=== PATIENT | male | born 1950 | race Caucasian/White ===

== ENCOUNTER 2018-09-30 10:23 | Emergency (ER) | payer MEDICARE ==
[~2018-09-30] VITALS: Ht 182.9 cm; Wt 90.9 kg
[2018-09-30 11:43] LABS: HEMATOCRIT 38.8 % (39.0-50.0); HEMOGLOBIN 12.4 g/dl (14.0-18.0); IMMATURE GRANULOCYTES 0.5 % (0.0-5.0); MEAN CELL VOLUME 94.6 fL CALC (80.0-100.0); MEAN CORPUSCULAR HGB 30.2 pG CALC (26.0-32.0); NEUT# 7.6 thou/uL (1.82-7.42); RED BLOOD COUNT 4.1 mill/uL (4.70-6.10); RED CELL DISTRI WIDTH 14.1 % (11.5-15.5)
[2018-09-30 11:45] LABS: URINE BLOOD DIPSTICK LARGE (NEGATIVE); URINE COLOR YELLOW; URINE GLUCOSE - DIPSTICK NEGATIVE (NEGATIVE); URINE KETONE 15 mg/dL (NEGATIVE); URINE LEUK ESTERASE NEGATIVE (NEGATIVE); URINE NITRITE - DIPSTICK NEGATIVE (Negative); URINE PROTEIN - DIPSTICK 100 mg/dL (NEG-TRACE)
[2018-09-30 11:48] LABS: URINE BILIRUBIN - DIPSTICK MODERATE (NEGATIVE)
[2018-09-30 12:06] LABS: URINE RBC TNTC RBC/hpf (0-5); URINE SQUAMOUS EPITHELIAL CELL FEW EPI/hpf (0-FEW)
[2018-09-30 12:41] LABS: ALBUMIN 4.2 g/dL (3.2-5.0); ALKALINE PHOSPHATASE 134 u/l (38-126); ANION GAP 19 (6-22 (CALC)); BILIRUBIN, TOTAL 1.1 mg/dL (0.0-1.4); BUN 15 mg/dL (8-23); BUN/CREATININE RATIO 16 (12-20 (CALC)); CARBON DIOXIDE 24 mmol/l (22-30); CHLORIDE 100 mmol/l (95-108); GFR > 60 ML/MIN (>=60 (CALC)); GFR FOR AFR.AMER. > 60 ML/MIN (>=60 (CALC)); POTASSIUM 3.7 mmol/l (3.5-5.1); SGOT/AST 39 u/l (19-48); SODIUM 140 mmol/l (137-146); TOTAL PROTEIN 7.9 g/dL (6.3-8.2)
[2018-09-30] MEDS ORDERED: METRONIDAZOL500 MG PO (15:12)
[2018-09-30] MEDS ORDERED: BACTRIM DS1 TAB PO (15:12)
[2018-09-30 15:18] VITALS: BP 114/74
[2018-10-04] MEDS ORDERED: LIPITOR20 M1 PO (11:26)
[2018-10-04] MEDS ORDERED: OMEPRAZOLE20 M2 PO (11:26)
[2018-10-04] MEDS ORDERED: SERTRALINE25 MG PO (11:26)
== END 2018-09-30 15:29 | disposition home or self-care (01) ==
LOC: ED 10:23
PROVIDERS: Emergency Medicine
DX: K66.8 Other specified disorders of peritoneum (principal); R31.9 Hematuria, unspecified
CPT/HCPCS: Q9967

== ENCOUNTER → 2018-10-05 | Outpatient (REF) | payer MEDICARE ==
[~2018-10-05] MED LIST: BACTRIM DS1 TAB PO; LIPITOR20 M1 PO; METRONIDAZOL500 MG PO; OMEPRAZOLE20 M2 PO; SERTRALINE25 MG PO
[2018-10-05 09:33] LABS: HEMOGLOBIN 11.5 g/dl (14.0-18.0); IMMATURE GRANULOCYTES 0.6 % (0.0-5.0); MEAN CELL VOLUME 93.8 fL CALC (80.0-100.0); MEAN CORPUSCULAR HGB 29.9 pG CALC (26.0-32.0); MEAN CORPUSCULAR HGB CONC 31.9 g/L CALC (32.0-36.0); NEUT# 7.16 thou/uL (1.82-7.42); RED BLOOD COUNT 3.84 mill/uL (4.70-6.10); RED CELL DISTRI WIDTH 14.6 % (11.5-15.5)
[2018-10-05 10:02] LABS: INTERNATIONAL NORMALIZED RATIO 1.1 RATIO (0.7-1.3); PROTHROMBIN TIME 11.8 SECONDS (9.0-12.5)
== END | disposition home or self-care (01) ==
LOC: CT 08:55
PROVIDERS: ATTEND Surgery
PROC: 0J9C30Z Drainage of Pelvic Region Subcutaneous Tissue and Fascia with Drainage Device, Percutaneous Approach (ICD-10-PCS; principal; 2018-10-05)
DX: L02.213 Cutaneous abscess of chest wall (principal); R18.8 Other ascites

== ENCOUNTER 2021-06-08 14:35 | Emergency (ER) | payer MEDICARE, OTHER ==
[~2021-06-08] VITALS: Ht 180.3 cm; Wt 87.0 kg
[2021-06-08] MEDS ORDERED: ATORVASTATIN CA40 MG PO (19:11)
[2021-06-08] MEDS ORDERED: SERTRALINE HCL100 MG PO (19:11)
[2021-06-08] MEDS ORDERED: OMEPRAZOLE DR20 MG PO (19:12)
[2021-06-08] MEDS ORDERED: LISINOPRIL2.5 MG PO (19:12)
[2021-06-08 19:15] VITALS: BP 155/74
== END 2021-06-08 19:15 | disposition home or self-care (01) ==
LOC: ED 14:35
PROC: 0CQ0XZZ Repair Upper Lip, External Approach (ICD-10-PCS; principal; 2021-06-08)
PROC: 2W3DX1Z Immobilization of Left Lower Arm using Splint (ICD-10-PCS; 2021-06-08)
DX: S62.397A Other fracture of fifth metacarpal bone, left hand, initial encounter for closed fracture (principal); S01.511A Laceration without foreign body of lip, initial encounter; I10 Essential (primary) hypertension; E78.5 Hyperlipidemia, unspecified; F41.9 Anxiety disorder, unspecified; K21.9 Gastro-esophageal reflux disease without esophagitis; W01.0XXA Fall on same level from slipping, tripping and stumbling without subsequent striking against object, initial encounter; Y92.007 Garden or yard of unspecified non-institutional (private) residence as the place of occurrence of the external cause